=== PATIENT | female | born 1965 | race Caucasian/White ===

== ENCOUNTER 2021-05-15 17:09 | Emergency (ER) | payer SELFPAY ==
[2021-05-15 17:25] VITALS: BMI 39.6
[2021-05-15 19:55] LABS: BASO % 0.3 % (0-2.0); EOS % 2.7 % (0-4.5); MCH 30.7 pg (25.7-33.7); MCHC 33.2 g/dl (32.0-36.0); MEAN CELL VOLUME 92.3 fl (80-96); MEAN PLT VOLUME 9.7 fl (7.5-11.1); MONO % 10.8 % (3.8-10.2); NEUT % 58.2 % (42.8-82.8); PLATELET COUNT 216 10^3/uL (134-434); RBC 4.56 M/mm3 (3.60-5.2); WHITE BLOOD COUNT 6.8 K/mm3 (4.0-10.0)
[2021-05-15 20:06] LABS: INR 0.97 (0.83-1.09); PROTHROMBIN TIME (PATIENT) 11.1 SEC (9.7-13.0)
[2021-05-15 20:09] LABS: ACTIVATED PTT 28.9 SECONDS (25.2-36.5)
[2021-05-15 20:24] LABS: CALCIUM 9.2 mg/dL (8.5-10.1)
[2021-05-15 20:25] LABS: ALBUMIN 3.8 g/dl (3.4-5.0); BLOOD UREA NITROGEN 12.4 mg/dL (7-18)
[2021-05-15 20:28] LABS: CREATININE 0.6 mg/dL (0.55-1.3)
[2021-05-15 20:30] LABS: BILIRUBIN,TOTAL 0.6 mg/dL (0.2-1); TOT PROT 7.9 g/dl (6.4-8.2)
[2021-05-15 20:44] VITALS: BP 129/80; PULSE 70; TEMP 97.7
== END 2021-05-15 21:16 | disposition home or self-care (01) ==
LOC: JER 17:09
DX: I80.01 Phlebitis and thrombophlebitis of superficial vessels of right lower extremity (principal)
CPT/HCPCS: 36415; 80053; 85025; 85610; 85730; 93971-TC; 99284-25